=== PATIENT | male | born 1955 | race Caucasian/White ===

== ENCOUNTER 2016-08-14 09:18 | Day surgery (SDC) | payer BC ==
[~2016-08-14] VITALS: Ht 154.9 cm; Wt 43.5 kg
[2016-08-14] MEDS ORDERED: VITAMIN D (10:03)
[2016-08-14] MEDS ORDERED: IBUPROFEN (10:03)
[2016-08-14] MEDS ORDERED: BENTYL (10:03)
[2016-08-14] MEDS ORDERED: ASPIRIN (10:03)
[2016-08-14] MEDS ORDERED: JANUMET (10:03)
[2016-08-14 10:05] VITALS: Ht 154.9 cm; Wt 43.5 kg
[2016-08-14] MEDS ORDERED: PROPOFOL 40 ML ONE (10:19)
[2016-08-14 10:25] VITALS: BP 98/63; PULSE 76; RESP 18
[2016-08-14] MEDS ORDERED: PHENYLephrine (100 MCG/ML) 5ML SYG ONE (10:41)
--- NOTE | 2016-08-14 11:48 | GILP ---
DATE OF PROCEDURE: PROCEDURE PERFORMED: Colonoscopy with polypectomy and esophagogastroduodenoscopy with biopsy. INDICATION: A 60-year-old male undergoing this procedure for sudden nausea, vomiting, abdominal taryn n and colonoscopy for colon cancer screening. The risks of the procedure, related and unrelated com plications, anesthetic risks, alternatives discussed and informed consent was obtained. DESCRIPTION OF PROCEDURE: The patient was brought to the GI lab, sedated by anesthesiologist, Angelina brown. After obtaining sedation, scope was passed with much ease into esophagus which was grossly wi thin normal limits. No varicose vein identified. Z-line was at 35 cm. The patient had a severe pa n gastritis. Duodenal mucosa also was severely edematous and inflamed where there was an acute duod enal ulcer. There was also a punctum in the center of the bulb. Whether this was a healing ulcer o r fistula, difficult to say. The second part of the duodenum was within normal limits. Biopsy take n full from the stomach to rule out H. pylori infection and MALToma. Retroflexion was normal. Scop e was straightened out and removed with good patient tolerance. IMPRESSION 1. Normal esophagus. 2. Z line at 35 cm. 3. No varicose vein. 4. Severe rosales gastritis. 5. Severe duodenitis. 6. Active duodenal ulcer. PLAN: To review histopathology, start the patient on PPI, refrain from alcohol. COLONOSCOPY REPORT. He was turned around, scope was passed with much ease into rectum, advanced thr ough sigmoid, descending, transverse colon all the way into cecum. Appendiceal orifice and IC valve identified. While coming out, mucosa thoroughly inspected. In the hepatic flexure, there was a po lyp 1.5 cm in diameter, successfully removed by hot snare technique. In the transverse colon, there was a 2 cm to 2.5 cm in diameter polyp successfully removed again by hot snare technique. Both the polyps were retrieved. In the rectum, there was a 3 cm in length polyp and it was removed by hot s nare technique and retrieved. The scope was removed with good patient tolerance. IMPRESSION: 1. Multiple polyps removed as described. 2. Clarity and cleanliness was good. 3. There are still 1 or 2 small flat polyps, which he need to be was removed, so this patient needs repeat colonoscopy in 2 to 3 years. Dictated By: NAHED BECKER/CELESTINA Conf#: [id number] [facility]#: [id number]
[2016-08-14 11:52] VITALS: BP 92/81; RESP 20
== END 2016-08-14 13:53 | disposition home or self-care (01) ==
LOC: GIL 09:18
PROVIDERS: ATTEND Internal Medicine Gastroenterology
DX: K29.50 Unspecified chronic gastritis without bleeding (principal); D12.3 Benign neoplasm of transverse colon; K29.60 Other gastritis without bleeding; K29.80 Duodenitis without bleeding; K26.9 Duodenal ulcer, unspecified as acute or chronic, without hemorrhage or perforation; I10 Essential (primary) hypertension; E11.9 Type 2 diabetes mellitus without complications
CPT/HCPCS: 43239; 45380; 82962; 88305; 88312; J2370; Z7610